=== PATIENT | female | born 1985 | race Caucasian/White ===

== ENCOUNTER 2020-05-09 13:51 | Emergency (ER) | payer SELFPAY ==
[~2020-05-09] VITALS: Ht 160 cm; Wt 45.0 kg
[~2020-05-09 13:51] MED LIST: AMOXICILLIN500 MG OR; BACTRIM DS1 TAB OR; BACTRIM DS1 TAB PO; CIPRO500 MG OR; DOXYCYC MONO100 MG OR; LORTAB 10 OR; NAPROSYN500 MG PO; NO HOME MEDS; PERCOCET 5/325M1 TAB OR; PYRIDIUM200 MG OR; SEROQUEL100 MG PO; TRAZODONE50 MG PO; ULTRAM50 MG OR; ZOFRAN ODT8 MG SL; ZOLOFT50 MG PO
[2020-05-09 14:47] LABS: HEMATOCRIT 43.5 % (37.0-47.0); HEMOGLOBIN 14.3 g/dl (12.0-16.0); IMMATURE GRANULOCYTES 0.2 % (0.0-5.0); MEAN CELL VOLUME 96.9 fL CALC (80.0-100.0); MEAN CORPUSCULAR HGB 31.8 pG CALC (26.0-32.0); MEAN CORPUSCULAR HGB CONC 32.9 g/dL CAL (32.0-36.0); NEUT# 3.14 thou/uL (2.00-7.15); RED BLOOD COUNT 4.49 mill/uL (4.20-5.60); RED CELL DISTRI WIDTH 12.6 % (11.5-15.5)
[2020-05-09 15:05] LABS: ALKALINE PHOSPHATASE 68 u/l (38-126); ANION GAP 14 (6-22 (CALC)); BILIRUBIN, TOTAL 0.5 mg/dL (0.0-1.4); BUN 18 mg/dL (7-17); BUN/CREATININE RATIO 22 (12-20 (CALC)); CARBON DIOXIDE 21 mmol/l (22-30); CHLORIDE 107 mmol/l (95-108); CREATININE 0.8 mg/dL (0.5-1.0); ETHYL ALCOHOL 102 mg/dl (0-30); GFR > 60 ML/MIN (>=60 (CALC)); GFR FOR AFR.AMER. > 60 ML/MIN (>=60 (CALC)); SODIUM 138 mmol/l (137-146)
[2020-05-09 15:13] LABS: URINE BILIRUBIN - DIPSTICK NEGATIVE (NEGATIVE); URINE BLOOD DIPSTICK NEGATIVE (NEGATIVE); URINE COLOR YELLOW; URINE GLUCOSE - DIPSTICK NEGATIVE (NEGATIVE); URINE KETONE NEGATIVE (NEGATIVE); URINE LEUK ESTERASE TRACE (NEGATIVE); URINE NITRITE - DIPSTICK NEGATIVE (Negative); URINE PROTEIN - DIPSTICK NEGATIVE (NEG-TRACE); URINE UROBILINOGEN - DIPSTICK 0.2 E.U./dL (0.2)
[2020-05-09 15:19] LABS: SGOT/AST 63 u/l (14-36)
[2020-05-09 23:19] VITALS: BP 107/53
== END 2020-05-09 23:19 | disposition designated cancer center or children's hospital (05) | DRG 880 ==
LOC: ED 13:51
PROVIDERS: Family Medicine
DX: R45.851 Suicidal ideations (principal); R45.1 Restlessness and agitation; M25.521 Pain in right elbow; T14.8XXA Other injury of unspecified body region, initial encounter; F41.9 Anxiety disorder, unspecified; F32.9 Major depressive disorder, single episode, unspecified; F17.210 Nicotine dependence, cigarettes, uncomplicated; Z78.1 Physical restraint status; X58.XXXA Exposure to other specified factors, initial encounter
CPT/HCPCS: J2060